=== PATIENT | male | born 1975 | race Caucasian/White ===

== ENCOUNTER 2016-06-11 19:04 | Emergency (ER) | payer BC ==
[~2016-06-11] VITALS: Ht 182.9 cm; Wt 112.0 kg
[~2016-06-11 19:04] MED LIST: NO MEDS
[2016-06-11 19:16] VITALS: Ht 182.9 cm; Wt 112.0 kg
[2016-06-11] MEDS ORDERED: KETOROLAC 30 MG INJ IM STA (20:24)
[2016-06-11] MEDS ORDERED: NAPR-260 PO (20:36)
--- NOTE | 2016-06-11 21:29 | ERD ---
ER Documentation Chief Complaint Date/Time DATE: 06/11/16 TIME: 21:25 Chief Complaint low back pain, denies injury HPI This patient is a 41-year-old male with no significant medical history presenting to the emergency department for left sided paraspinal lumbar pain which is been ongoing for 2 weeks. The patient states he coughed very forcefully 2 weeks ago and felt a strain in his back. The pain has been slightly improving over the past 2 weeks. The patient has been taking ibuprofen at home with only mild relief. The patient denies any loss of bowel or bladder function, numbness or tingling in his lower extremities, loss of function of his lower extremities, headache, dizziness, nausea, vomiting, diarrhea, or other symptoms at this time. ROS All systems reviewed and are negative except as per history of present illness. Medications Home Meds Active Scripts Naproxen* (Naprosyn*) 500 Mg Tablet, 500 MG PO BID Y for PAIN AND/OR INFLAMMATION, #30 TAB Prov:KRISH MERINO PA-C 06/11/16 Reported Medications [No Meds] No Conflict Check 05/30/12 Allergies Allergies: Coded Allergies: No Known Drug Allergies (Verified Allergy, Mild, 05/30/12) PMhx/Soc Medical and Surgical Hx: pt denies Medical Hx, pt denies Surgical Hx History of Surgery: No Anesthesia Reaction: No Hx Neurological Disorder: No Hx Respiratory Disorders: No Hx Cardiac Disorders: No Hx Psychiatric Problems: No Hx Miscellaneous Medical Probl: No Hx Alcohol Use: Yes Hx Substance Use: No Hx Tobacco Use: No Smoking Status: Never smoker FmHx Noncontributory for chief complaint Physical Exam Vitals Vital Signs Date Time Temp Pulse Resp B/P Pulse Ox O2 Delivery O2 Flow Rate FiO2 06/11/16 19:16 98.7 74 20 150/92 98 Physical Exam Const: The patient is resting comfortably in no acute distress. Head: Atraumatic Eyes: Normal Conjunctiva ENT: Normal External Ears, Nose and Mouth. Neck: Full range of motion..~ No meningismus. Resp: Clear to auscultation bilaterally Cardio: Regular rate and rhythm, no murmurs Abd: Soft, non tender, non distended. Normal bowel sounds Skin: No petechiae or rashes Back: There is tenderness to palpation of the left paraspinal muscles. There is no midline tenderness. There are no step-offs. Ext: No cyanosis, or edema Neur: Awake and alert Psych: Normal Mood and Affect Results 24 hrs Current Medications Medications (Trade) Dose Ordered Sig/Rico Route PRN Reason Start Time Stop Time Status Last Admin Dose Admin Ketorolac Tromethamine (Toradol) 30 mg ONCE STAT IM 06/11/16 20:24 06/11/16 20:25 DC 06/11/16 20:51 Procedures/MDM 38-year-old male presents secondary to complaints of left-sided paraspinal back pain after injury approximately 2 weeks ago. On physical examination the patient's blood pressure slightly elevated. Patient's blood pressure was elevated (>120/80) but appears stable without evidence of hypertension emergency or urgency. The patient was counseled about the risks of hypertension and urged to pursue outpatient monitoring and therapy within a week with their primary care physician. The patient was treated in the department with IM Toradol and was feeling improved on reevaluation. The patient is stable for outpatient management with a prescription for naproxen. The patient agrees with discharge plan of diagnosis. I doubt cauda equina, spondylolisthesis, epidural abscess, vertebral body fracture, or other emergent conditions at this time. The patient was advised to return the department immediately with any new or worsening symptoms and he demonstrates good understanding of this information. Patient is to follow-up with his primary care physician as soon as possible. The patient was hemodynamically stable prior to discharge. Departure Diagnosis: Primary Impression: Back pain Condition: Fair Patient Instructions: Back Pain (Acute Or Chronic) Referrals: [facility] YOU HAVE RECEIVED A MEDICAL SCREENING EXAM AND THE RESULTS INDICATE THAT YOU DO NOT HAVE A CONDITION THAT REQUIRES URGENT TREATMENT IN THE EMERGENCY DEPARTMENT. FURTHER EVALUATION AND TREATMENT OF YOUR CONDITION CAN WAIT UNTIL YOU ARE SEEN IN YOUR DOCTORS OFFICE WITHIN THE NEXT 1-2 DAYS. IT IS YOUR RESPONSIBILITY TO MAKE AN APPOINTMENT FOR FOLOW-UP CARE. IF YOU HAVE A PRIMARY DOCTOR --you should call your primary doctor and schedule an appointment IF YOU DO NOT HAVE A PRIMARY DOCTOR YOU CAN CALL OUR PHYSICIAN REFERRAL HOTLINE AT IF YOU CAN NOT AFFORD TO SEE A PHYSICIAN YOU CAN CHOSE FROM THE FOLLOWING [facility] [id number] [facility]. [facility] [address] [facility]. [facility] [address] [facility]. [facility] [address] [facility]. [facility] [address] [facility]. [facility] [address] Additional Instructions: Follow-up with your primary care physician within 1 week. Return to the emergency department immediately should you have any new or worsening symptoms, uncontrolled fevers, or other unexplained symptoms. Take all medications as directed. KRISH MERINO PA-C Jun 11, 2016 21:29
== END 2016-06-11 21:03 | disposition home or self-care (01) ==
LOC: FTE 19:04
DX: M54.5 Low back pain (principal)
CPT/HCPCS: 96372; J1885

== ENCOUNTER 2017-09-29 09:08 | Day surgery (SDC) | END 2017-09-29 15:30 | disposition home or self-care (01) ==